=== PATIENT | female | born 1980 | race Caucasian/White ===

== ENCOUNTER 2016-12-28 17:44 | Emergency (ER) | payer SELFPAY ==
[~2016-12-28] VITALS: Ht 162.6 cm; Wt 80.0 kg
[~2016-12-28 17:44] MED LIST: ALPRAZOLAM1 MG PO; AMBIEN10 MG PO; AMBIEN5 MG PO; AMITRIPTYLIN25 MG PO; AMOXICILLIN/CL875 MG PO; AMOXICILLIN/PO500 MG PO; AMOXICILLIN500 M2 PO; AUGMENTIN875 MG PO; BACTRIM DS1 TAB PO; BENZONATATE200 MG PO; BIRTH CONTROL; BUSPAR5 MG PO; CIPROFLOXACN500 MG PO; CLARITIN10 M1 PO; CYMBALTA30 MG PO; DAYSEE1 TAB PO; DHA COMPLETE200 MG PO; DIFLUCAN150 MG PO; DOXYCYCL HYC100 MG PO; EPIPEN0.3 MG IM; FLEXERIL OR; FLEXERIL PO; FLEXERIL5 M1 PO; FLONASE NASAL50 MCG; FLUOXETINE HCL40 MG PO; GABAPENTIN400 MG PO; K-DUR/KLOR-CON10 MEQ PO; KAYEXALATE15 GM/60 M PO; LASIX 20 MG20 MG/TAB PO; LEVAQUIN750 MG PO; LOPRESSOR PO; LOPRESSOR25 M1 PO; LORTAB 1010 MG PO; LORTAB 7.5 PO; LORTAB5 PO; LUNESTA2 M1 PO; MEDDOSEPAK OR; MEDDOSEPAK PO; MELATONIN1 M1 PO; MIGRAINE OR; MIRCETTE28 DAY PO; MOTRIN800 MG PO; MUCINEX600 MG PO; NAPROSYN500 MG PO; NEORAL25 MG PO; NEURONTIN300 MG PO; NIZORAL200 MG PO; PERCOCET 5/325M1 TAB PO; PREDNISONE10 MG PO; PREDNISONE20 MG PO; PRENATA4 OR; PRENATABS OR; PRENATAL1 TAB OR; PRILOSEC40 MG PO; PROZAC40 MG PO; SEROQUEL200 MG PO; TAGAMET300 MG OR; TESSALON PER100 MG PO; TRAMADOL HCL50 MG PO; TYLENOL SEVE OR; ULTRAM50 M1 PO; VENLAFAXINE75 M1 PO; XANAX0.25 MG OR; XANAX0.25 MG PO; XANAX1 MG PO; XANAX2 MG PO; ZOFRAN ODT4 MG OR
[2016-12-28] MEDS ORDERED: MELATONIN5 M6 PO (19:29)
[2016-12-28 19:30] LABS: HEMOGLOBIN 13.2 g/dl (12.0-16.0); IMMATURE GRANULOCYTES 0.3 % (0.0-1.0); MEAN CELL VOLUME 87.1 fL CALC (80.0-100.0); MEAN CORPUSCULAR HGB 31.1 pG CALC (26.0-32.0); MEAN CORPUSCULAR HGB CONC 35.7 g/L CALC (32.0-36.0); NEUT# 3.96 thou/uL (2.00-7.15); RED BLOOD COUNT 4.25 mill/uL (4.20-5.60); RED CELL DISTRI WIDTH 12.1 % (11.5-15.5)
[2016-12-28 19:32] LABS: URINE BILIRUBIN - DIPSTICK NEGATIVE (NEGATIVE); URINE BLOOD DIPSTICK NEGATIVE (NEGATIVE); URINE CLARITY CLEAR; URINE COLOR YELLOW; URINE GLUCOSE - DIPSTICK NEGATIVE (NEGATIVE); URINE KETONE NEGATIVE (NEGATIVE); URINE LEUK ESTERASE NEGATIVE (NEGATIVE); URINE NITRITE - DIPSTICK NEGATIVE (Negative); URINE PROTEIN - DIPSTICK NEGATIVE (NEG-TRACE); URINE UROBILINOGEN - DIPSTICK 0.2 E.U./dL (0.2)
[2016-12-28 19:47] LABS: ALBUMIN 4.4 g/dL (3.2-5.0); ALKALINE PHOSPHATASE 65 u/l (38-126); AMYLASE 40 u/l (30-110); ANION GAP 13 (6-22 (CALC)); BILIRUBIN, TOTAL 0.6 mg/dL (0.0-1.4); BUN 17 mg/dL (7-17); BUN/CREATININE RATIO 17 (12-20 (CALC)); CALCIUM 9.9 mg/dL (8.4-10.2); CARBON DIOXIDE 26 mmol/l (22-30); CHLORIDE 103 mmol/l (95-108); GFR > 60 ML/MIN (>=60 (CALC)); GFR FOR AFR.AMER. > 60 ML/MIN (>=60 (CALC)); GLUCOSE 76 mg/dL (65-105); LIPASE 66 u/l (23-300); POTASSIUM 4.5 mmol/l (3.5-5.1); SGOT/AST 16 u/l (14-36); SGPT/ALT 28 u/l (9-52); SODIUM 138 mmol/l (137-146)
[2016-12-28] MEDS ORDERED: ULTRAM50 M1 PO (21:18)
[2016-12-28 21:54] VITALS: BP 137/84
== END 2016-12-28 21:58 | disposition home or self-care (01) | DRG 761 ==
LOC: ED 17:44
DX: N83.201 Unspecified ovarian cyst, right side (principal); D86.9 Sarcoidosis, unspecified; F43.10 Post-traumatic stress disorder, unspecified; F32.9 Major depressive disorder, single episode, unspecified; F41.9 Anxiety disorder, unspecified; M79.7 Fibromyalgia
CPT/HCPCS: Q9967

== ENCOUNTER 2017-03-20 18:14 | Emergency (ER) | payer MEDICAID ==
[~2017-03-20] VITALS: Ht 162.6 cm; Wt 75.0 kg
[~2017-03-20 18:14] MED LIST changes: +MELATONIN5 M6 PO
[2017-03-20 19:07] LABS: HEMATOCRIT 38.7 % (37.0-47.0); HEMOGLOBIN 13.3 g/dl (12.0-16.0); IMMATURE GRANULOCYTES 0.2 % (0.0-1.0); MEAN CORPUSCULAR HGB 30.2 pG CALC (26.0-32.0); MEAN CORPUSCULAR HGB CONC 34.4 g/L CALC (32.0-36.0); NEUT# 3.47 thou/uL (2.00-7.15); RED BLOOD COUNT 4.4 mill/uL (4.20-5.60); RED CELL DISTRI WIDTH 12.4 % (11.5-15.5)
[2017-03-20 19:20] LABS: ALBUMIN 4.6 g/dL (3.2-5.0); ALKALINE PHOSPHATASE 60 u/l (38-126); ANION GAP 17 (6-22 (CALC)); BILIRUBIN, TOTAL 0.6 mg/dL (0.0-1.4); BUN 21 mg/dL (7-17); BUN/CREATININE RATIO 25 (12-20 (CALC)); CALCIUM 9.1 mg/dL (8.4-10.2); CARBON DIOXIDE 26 mmol/l (22-30); CHLORIDE 103 mmol/l (95-108); CREATININE 0.9 mg/dL (0.5-1.0); GFR > 60 ML/MIN (>=60 (CALC)); GFR FOR AFR.AMER. > 60 ML/MIN (>=60 (CALC)); GLUCOSE 76 mg/dL (65-105); POTASSIUM 3.8 mmol/l (3.5-5.1); SGOT/AST 19 u/l (14-36); SGPT/ALT 27 u/l (9-52); SODIUM 142 mmol/l (137-146); TOTAL PROTEIN 7.4 g/dL (6.3-8.2)
[2017-03-20 19:31] LABS: MYOGLOBIN 17 ng/mL (0 - 62)
[2017-03-20 20:40] VITALS: BP 114/78
== END 2017-03-20 21:01 | disposition left against medical advice (07) | DRG 313 ==
LOC: ED 18:14
PROVIDERS: Emergency Medicine
DX: R07.9 Chest pain, unspecified (principal); Z91.19 Patient's noncompliance with other medical treatment and regimen

== ENCOUNTER 2018-02-20 08:00 | Emergency (ER) | payer OTHER ==
[~2018-02-20] VITALS: Ht 162.6 cm; Wt 75.0 kg
[2018-02-20 08:30] LABS: HEMATOCRIT 42.4 % (37.0-47.0); HEMOGLOBIN 14.8 g/dl (12.0-16.0); IMMATURE GRANULOCYTES 0.4 % (0.0-5.0); MEAN CELL VOLUME 87.8 fL CALC (80.0-100.0); MEAN CORPUSCULAR HGB 30.6 pG CALC (26.0-32.0); MEAN CORPUSCULAR HGB CONC 34.9 g/L CALC (32.0-36.0); NEUT# 2.92 thou/uL (2.00-7.15); RED BLOOD COUNT 4.83 mill/uL (4.20-5.60); RED CELL DISTRI WIDTH 12.2 % (11.5-15.5); URINE BILIRUBIN - DIPSTICK NEGATIVE (NEGATIVE); URINE BLOOD DIPSTICK NEGATIVE (NEGATIVE); URINE CLARITY CLEAR; URINE COLOR YELLOW; URINE GLUCOSE - DIPSTICK NEGATIVE (NEGATIVE); URINE KETONE NEGATIVE (NEGATIVE); URINE LEUK ESTERASE NEGATIVE (NEGATIVE); URINE NITRITE - DIPSTICK NEGATIVE (Negative); URINE PROTEIN - DIPSTICK NEGATIVE (NEG-TRACE); URINE SPECIFIC GRAVITY 1.015; URINE UROBILINOGEN - DIPSTICK 0.2 E.U./dL (0.2)
[2018-02-20 08:46] LABS: ALBUMIN 4.4 g/dL (3.2-5.0); ALKALINE PHOSPHATASE 57 u/l (38-126); ANION GAP 16 (6-22 (CALC)); BILIRUBIN, TOTAL 0.5 mg/dL (0.0-1.4); BUN 17 mg/dL (7-17); BUN/CREATININE RATIO 20 (12-20 (CALC)); CARBON DIOXIDE 27 mmol/l (22-30); CHLORIDE 103 mmol/l (95-108); CREATININE 0.9 mg/dL (0.5-1.0); GFR > 60 ML/MIN (>=60 (CALC)); GFR FOR AFR.AMER. > 60 ML/MIN (>=60 (CALC)); LIPASE 78 u/l (23-300); POTASSIUM 4.1 mmol/l (3.5-5.1); SGOT/AST 17 u/l (14-36); SGPT/ALT 25 u/l (9-52); SODIUM 142 mmol/l (137-146); TOTAL PROTEIN 7.2 g/dL (6.3-8.2)
[2018-02-20] MEDS ORDERED: ONDANSETRON4 MG PO (10:49)
[2018-02-20] MEDS ORDERED: MOTRIN400 MG PO (11:41)
[2018-02-20 11:44] VITALS: BP 149/85
== END 2018-02-20 11:54 | disposition home or self-care (01) ==
LOC: ED 08:00
PROVIDERS: Family Medicine
DX: S39.011A Strain of muscle, fascia and tendon of abdomen, initial encounter (principal); S39.012A Strain of muscle, fascia and tendon of lower back, initial encounter; X58.XXXA Exposure to other specified factors, initial encounter; N94.89 Other specified conditions associated with female genital organs and menstrual cycle

== ENCOUNTER 2018-03-28 08:42 | Emergency (ER) | payer OTHER ==
[~2018-03-28] VITALS: Ht 162.6 cm; Wt 73.0 kg
[~2018-03-28 08:42] MED LIST changes: +MOTRIN400 MG PO; +ONDANSETRON4 MG PO
[2018-03-28] MEDS ORDERED: METOPROL TAR25 MG PO (08:53)
[2018-03-28] MEDS ORDERED: TRAMADOL HCL50 MG PO (08:53)
[2018-03-28 09:40] LABS: HEMATOCRIT 38.7 % (37.0-47.0); HEMOGLOBIN 13.6 g/dl (12.0-16.0); IMMATURE GRANULOCYTES 0.3 % (0.0-5.0); MEAN CELL VOLUME 89.4 fL CALC (80.0-100.0); MEAN CORPUSCULAR HGB 31.4 pG CALC (26.0-32.0); MEAN CORPUSCULAR HGB CONC 35.1 g/L CALC (32.0-36.0); NEUT# 4.71 thou/uL (2.00-7.15); RED BLOOD COUNT 4.33 mill/uL (4.20-5.60); RED CELL DISTRI WIDTH 12.3 % (11.5-15.5)
[2018-03-28 09:41] LABS: URINE BILIRUBIN - DIPSTICK NEGATIVE (NEGATIVE); URINE BLOOD DIPSTICK NEGATIVE (NEGATIVE); URINE COLOR YELLOW; URINE GLUCOSE - DIPSTICK NEGATIVE (NEGATIVE); URINE KETONE NEGATIVE (NEGATIVE); URINE LEUK ESTERASE NEGATIVE (NEGATIVE); URINE NITRITE - DIPSTICK NEGATIVE (Negative); URINE PROTEIN - DIPSTICK NEGATIVE (NEG-TRACE); URINE SPECIFIC GRAVITY 1.025
[2018-03-28 09:43] LABS: URINE CLARITY SL CLOUDY
[2018-03-28 10:04] LABS: ANION GAP 12 (6-22 (CALC)); BUN 17 mg/dL (7-17); BUN/CREATININE RATIO 19 (12-20 (CALC)); CARBON DIOXIDE 27 mmol/l (22-30); CHLORIDE 105 mmol/l (95-108); CREATININE 0.9 mg/dL (0.5-1.0); GFR > 60 ML/MIN (>=60 (CALC)); GFR FOR AFR.AMER. > 60 ML/MIN (>=60 (CALC)); POTASSIUM 4.3 mmol/l (3.5-5.1); SODIUM 140 mmol/l (137-146)
[2018-03-28 12:06] VITALS: BP 112/73
== END 2018-03-28 12:13 | disposition home or self-care (01) ==
LOC: ED 08:42
PROVIDERS: Family Medicine
DX: S76.011A Strain of muscle, fascia and tendon of right hip, initial encounter (principal); M25.551 Pain in right hip; X58.XXXA Exposure to other specified factors, initial encounter

== ENCOUNTER 2020-01-08 10:23 | Emergency (ER) | payer MEDICAID ==
[~2020-01-08] VITALS: Ht 162.6 cm; Wt 75.0 kg
[~2020-01-08 10:23] MED LIST changes: +METOPROL TAR25 MG PO
[2020-01-08 11:28] LABS: HEMATOCRIT 39.1 % (37.0-47.0); HEMOGLOBIN 13.1 g/dl (12.0-16.0); IMMATURE GRANULOCYTES 0.6 % (0.0-5.0); MEAN CELL VOLUME 87.3 fL CALC (80.0-100.0); MEAN CORPUSCULAR HGB 29.2 pG CALC (26.0-32.0); MEAN CORPUSCULAR HGB CONC 33.5 g/dL CAL (32.0-36.0); NEUT# 3.47 thou/uL (2.00-7.15); RED BLOOD COUNT 4.48 mill/uL (4.20-5.60); RED CELL DISTRI WIDTH 12.4 % (11.5-15.5)
[2020-01-08 12:16] LABS: URINE BILIRUBIN - DIPSTICK NEGATIVE (NEGATIVE); URINE BLOOD DIPSTICK NEGATIVE (NEGATIVE); URINE COLOR YELLOW; URINE GLUCOSE - DIPSTICK NEGATIVE (NEGATIVE); URINE KETONE NEGATIVE (NEGATIVE); URINE LEUK ESTERASE NEGATIVE (NEGATIVE); URINE NITRITE - DIPSTICK NEGATIVE (Negative); URINE PROTEIN - DIPSTICK NEGATIVE (NEG-TRACE); URINE SPECIFIC GRAVITY >=1.030
[2020-01-08 12:29] LABS: ALBUMIN 4.6 g/dL (3.2-5.0); ALKALINE PHOSPHATASE 64 u/l (38-126); ANION GAP 11 (6-22 (CALC)); BILIRUBIN, TOTAL 0.7 mg/dL (0.0-1.4); BUN 20 mg/dL (7-17); BUN/CREATININE RATIO 18 (12-20 (CALC)); CARBON DIOXIDE 26 mmol/l (22-30); CHLORIDE 102 mmol/l (95-108); CREATININE 1.1 mg/dL (0.5-1.0); GFR 55 ML/MIN (>=60 (CALC)); GFR FOR AFR.AMER. > 60 ML/MIN (>=60 (CALC)); LIPASE 45 u/l (23-300); POTASSIUM 4.1 mmol/l (3.5-5.1); SGOT/AST 21 u/l (14-36); SODIUM 135 mmol/l (137-146); TOTAL PROTEIN 6.9 g/dL (6.3-8.2)
[2020-01-08] MEDS ORDERED: DOXYCYC MONO100 M2 PO (13:19)
[2020-01-08 13:22] VITALS: BP 136/85
== END 2020-01-08 13:22 | disposition home or self-care (01) ==
LOC: ED 10:23
PROVIDERS: Family Medicine
DX: R51 Headache (principal); L03.312 Cellulitis of back [any part except buttock and flank]; Z20.828 Contact with and (suspected) exposure to other viral communicable diseases

== ENCOUNTER 2020-04-22 10:41 | Emergency (ER) | payer MEDICAID ==
[~2020-04-22] VITALS: Ht 162.6 cm; Wt 65.0 kg
[~2020-04-22 10:41] MED LIST changes: +DOXYCYC MONO100 M2 PO
[2020-04-22 11:45] VITALS: BP 132/76
== END 2020-04-22 12:44 | disposition home or self-care (01) ==
LOC: ED 10:41
DX: R51.9 Headache, unspecified (principal); G43.909 Migraine, unspecified, not intractable, without status migrainosus

== ENCOUNTER 2020-06-17 15:31 | Emergency (ER) | payer MEDICAID ==
[~2020-06-17] VITALS: Ht 162.6 cm; Wt 74.0 kg
[2020-06-17] MEDS ORDERED: VENLAFAXINE37.5 M2 PO (16:04)
[2020-06-17] MEDS ORDERED: HYDROXYZ HCL50 MG PO (16:06)
[2020-06-17 16:34] LABS: HEMATOCRIT 40.2 % (37.0-47.0); HEMOGLOBIN 13.4 g/dl (12.0-16.0); IMMATURE GRANULOCYTES 0.4 % (0.0-5.0); MEAN CELL VOLUME 87.8 fL CALC (80.0-100.0); MEAN CORPUSCULAR HGB 29.3 pG CALC (26.0-32.0); MEAN CORPUSCULAR HGB CONC 33.3 g/dL CAL (32.0-36.0); NEUT# 4.37 thou/uL (2.00-7.15); RED BLOOD COUNT 4.58 mill/uL (4.20-5.60); RED CELL DISTRI WIDTH 12.2 % (11.5-15.5)
[2020-06-17 16:50] LABS: ALBUMIN 4.4 g/dL (3.2-5.0); ALKALINE PHOSPHATASE 59 u/l (38-126); ANION GAP 10 (6-22 (CALC)); BUN 25 mg/dL (7-17); BUN/CREATININE RATIO 23 (12-20 (CALC)); CARBON DIOXIDE 30 mmol/l (22-30); CHLORIDE 103 mmol/l (95-108); CREATININE 1.1 mg/dL (0.5-1.0); GFR 54 ML/MIN (>=60 (CALC)); GFR FOR AFR.AMER. > 60 ML/MIN (>=60 (CALC)); POTASSIUM 4.3 mmol/l (3.5-5.1); SGOT/AST 19 u/l (14-36); SODIUM 139 mmol/l (137-146)
[2020-06-17 16:51] LABS: BILIRUBIN, TOTAL 0.4 mg/dL (0.0-1.4)
[2020-06-17] MEDS ORDERED: AMOXICILLIN500 MG PO ×2 (17:29→17:53)
[2020-06-17 17:55] VITALS: BP 165/94
== END 2020-06-17 17:55 | disposition home or self-care (01) ==
LOC: ED 15:31
PROVIDERS: Emergency Medicine
DX: J02.9 Acute pharyngitis, unspecified (principal); Z20.828 Contact with and (suspected) exposure to other viral communicable diseases

== ENCOUNTER 2020-09-11 19:27 | Emergency (ER) | payer OTHER ==
[~2020-09-11] VITALS: Ht 162.6 cm; Wt 74.1 kg
[~2020-09-11 19:27] MED LIST changes: +AMOXICILLIN500 MG PO; +HYDROXYZ HCL50 MG PO; +VENLAFAXINE37.5 M2 PO
[2020-09-11] MEDS ORDERED: VENLAFAXINE HCL75 M1 PO (19:57)
[2020-09-11] MEDS ORDERED: PERCOCET 5/321 COMBO PO (22:11)
[2020-09-11 22:14] VITALS: BP 135/91
[2020-09-11] MEDS ORDERED: PERCOCET 5/325M1 TAB PO (22:20)
== END 2020-09-11 22:40 | disposition home or self-care (01) | DRG 914 ==
LOC: ED 19:27
DX: S89.91XA Unspecified injury of right lower leg, initial encounter (principal); W18.30XA Fall on same level, unspecified, initial encounter; Y93.41 Activity, dancing; Y92.89 Other specified places as the place of occurrence of the external cause
CPT/HCPCS: L1830

== ENCOUNTER 2021-05-26 07:08 | Observation (INO) | payer OTHER, MEDICAID ==
[2021-05-26] VITALS (8 sets, daily range): BP systolic 131–148; BP diastolic 80–92
[~2021-05-26] VITALS: Ht 162.6 cm; Wt 77.0 kg
[~2021-05-26 07:08] MED LIST changes: +PERCOCET 5/321 COMBO PO; +VENLAFAXINE HCL75 M1 PO
--- NOTE | 2021-05-26 07:10 | NUR ---
PT TO ROOM 12 W/STEADY GAIT.
--- NOTE | 2021-05-26 07:41 | NUR ---
MEDICATED WITH TORADOL 30MG IVP. ZOFRAN 4MG IVP FOR C/O 10/10 RUQ PAIN.
[2021-05-26 07:54] LABS: HEMATOCRIT 40.9 % (37.0-47.0); HEMOGLOBIN 13.7 g/dl (12.0-16.0); IMMATURE GRANULOCYTES 0.5 % (0.0-5.0); MEAN CELL VOLUME 89.9 fL CALC (80.0-100.0); MEAN CORPUSCULAR HGB 30.1 pG CALC (26.0-32.0); MEAN CORPUSCULAR HGB CONC 33.5 g/dL CAL (32.0-36.0); NEUT# 4.02 thou/uL (2.00-7.15); RED BLOOD COUNT 4.55 mill/uL (4.20-5.60); RED CELL DISTRI WIDTH 12.3 % (11.5-15.5)
--- NOTE | 2021-05-26 07:58 | NUR ---
MEDICATED WITH MORPHINE 4MG IVP FOR C/O 10 RUQ PAIN
[2021-05-26 08:21] LABS: URINE BILIRUBIN - DIPSTICK NEGATIVE (NEGATIVE); URINE BLOOD DIPSTICK NEGATIVE (NEGATIVE); URINE COLOR YELLOW; URINE GLUCOSE - DIPSTICK NEGATIVE (NEGATIVE); URINE KETONE NEGATIVE (NEGATIVE); URINE LEUK ESTERASE NEGATIVE (NEGATIVE); URINE PROTEIN - DIPSTICK NEGATIVE (NEG-TRACE); URINE UROBILINOGEN - DIPSTICK 0.2 E.U./dL (0.2)
[2021-05-26 08:22] LABS: URINE NITRITE - DIPSTICK NEGATIVE (Negative)
[2021-05-26 08:29] LABS: ALBUMIN 4.2 g/dL (3.2-5.0); ALKALINE PHOSPHATASE 69 u/l (38-126); ANION GAP 9 (6-22 (CALC)); BILIRUBIN, TOTAL 0.5 mg/dL (0.0-1.4); BUN 23 mg/dL (7-17); BUN/CREATININE RATIO 22 (12-20 (CALC)); CARBON DIOXIDE 32 mmol/l (22-30); CHLORIDE 102 mmol/l (95-108); GFR > 60 ML/MIN (>=60 (CALC)); GFR FOR AFR.AMER. > 60 ML/MIN (>=60 (CALC)); LIPASE 71 u/l (23-300); POTASSIUM 4.1 mmol/l (3.5-5.1); SGOT/AST 21 u/l (14-36); SODIUM 139 mmol/l (137-146); TOTAL PROTEIN 7.4 g/dL (6.3-8.2)
--- NOTE | 2021-05-26 08:50 | NUR ---
PT MEDICATED PER AUG FOR RUQ ABD PAIN
[2021-05-26] MEDS ORDERED: LISINOPRIL10 MG PO (09:35)
--- NOTE | 2021-05-26 09:38 | NUR ---
PT RESTING ON STRETCHER; PAIN IMPROVED; ADVISED OF WAIT TIME
--- NOTE | 2021-05-26 10:30 | NUR ---
PT RESTING ON STRETCHER; DENIES ANY NEEDS AT THIS TIME
--- NOTE | 2021-05-26 11:30 | NUR ---
RESTING ON STRETCHER WITH EYES CLOSED
--- NOTE | 2021-05-26 12:20 | NUR ---
Admission Note Report Given to: ROSALINDA FAN Transported by: X Wheelchair Stretcher Transported with: X Nurse Transporter Patent IV [id number] Bell Ringer Location: ICU X [facility]2
--- NOTE | 2021-05-26 13:26 | NUR ---
REPORT RECEIVED FROM RADHA IN ED, PT ARRIVED ON UNIT @ 1224 TRANSPORTED VIA W/C BY ED STAFF, ALERT AND ORIENTED X 4, C/O MILD ABD PAIN @ 09/01, ORIENTED TO ROOM AND CALL [facility], IVF OF 0.9 NS HUNG AND INFUSING @ 100ML/HR, EDUCATED ON INFECTION, PAIN CONTROL AND ANTI EMBOLITIC STOCKINGS. SETTLED IN BED, BECAME NAUSEATED AND STARTED DRY HEAVING, ZOFRAN GIVEN, ASSESSMENT IN PROGRESS WHEN OR STAFF ARRIVED @ 1315, RECEIVED PT AND TRANSPORTED HER OFF UNIT VIA STRETCHER TO OR. SPOUSE ACCOMPANIED PT TO THIS UNIT.
--- NOTE | 2021-05-26 18:57 | NUR ---
PT TRANSPORTED BACK TO UNIT VIA STRETCHER BY PACU STAFF @ 1752 AND TRANSFERRED TO BED, ALERT AND ORIENTED X 4, FULLY AWAKE, INCISION/PUNCTURE X 4 WELL APPROXIMATED WITH DERMABOND TO ABD. C/O MILD PAIN AND NAUSES, STARTED VOMITTING SHORTLY AFTER ARRIVAL AND ZOFRAN GIVEN. IVF INFUSING TO SITE IN LAC. O2 @ 3L VIA NC IN PLACE, REPAIR CLERK REPORTED INTUBATION WAS CHALLENGING THEREFORE MD ORDERED O2, SCD AND TEDS IN PLACE. VITAL SIGNS BEING MONITORED, CALL [facility]EDO IN REACH
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
--- NOTE | 2021-05-26 23:34 | NUR ---
PT RESTING IN BED WATCHING TV, C/O PAIN, MEDICATED PER MAR, CALL LIGHT IN REACH,CONTINUE TO MONITOR.
[2021-05-27] VITALS: BP 128/82
[2021-05-27 04:00] VITALS: BP 113/76
--- NOTE | 2021-05-27 05:07 | NUR ---
PT RETURNED TO BED FROM BSC, C/O PAIN 04/03 TO ABD. PT MEDICATED PER MAR, NO SIGNS OF DISTRESS NOTED, RESP EVEN AND UNLABORED. CALL LIGHT IN REACH,CONTINUE TO MONITOR.
--- NOTE | 2021-05-27 07:00 | NUR ---
REPORT RECEIVED FROM KALIN MONIQUE. PT RESTING SEMI-FOWLERS, VSS. DENIES PAIN AT THIS TIME CALL LIGHT WITHIN REACH. INSTRUCTED PT TO CALL FOR ASSISTANCE, VERBALIZES UNDERSTANDING.
[2021-05-27 09:02] VITALS: BP 123/84
[2021-05-27 11:21] VITALS: BP 130/82
--- NOTE | 2021-05-27 12:00 | NUR ---
PT GIVEN TORADOL FOR PAIN, PT STATES EFFECTIVENESS. MD ON FLOOR AT THIS TIME. GIVEN APPROVAL TO DISCHARGE. WILL INITIATE PAPERWORK.
[2021-05-27] MEDS ORDERED: LORTAB5 PO ×2 (12:59→13:46)
== END 2021-05-27 13:52 | disposition home or self-care (01) | DRG 419 ==
LOC: ED 07:08 → ED-I 09:00 → ED 09:22 → MS2 09:23
PROVIDERS: Family Medicine; ADMIT Surgery; ATTEND Surgery
PROC: 0FT44ZZ Resection of Gallbladder, Percutaneous Endoscopic Approach (ICD-10-PCS; principal; 2021-05-26)
DX: K81.2 Acute cholecystitis with chronic cholecystitis (principal); I10 Essential (primary) hypertension; Z90.710 Acquired absence of both cervix and uterus; Z20.822 Contact with and (suspected) exposure to COVID-19
CPT/HCPCS: G0378; J0131

== ENCOUNTER 2022-06-23 20:23 | Emergency (ER) | payer OTHER ==
[~2022-06-23] VITALS: Ht 162.6 cm; Wt 74.0 kg
[~2022-06-23 20:23] MED LIST changes: +CHOLESTYRAMINE4 G1 PO; +FLUOXETINE20 MG PO; +LISINOPRIL10 MG PO; +LOREEV XR1 MG
[2022-06-23 20:32] VITALS: BP 116/78
[2022-06-23] MEDS ORDERED: AMBIEN5 MG PO (20:41)
[2022-06-23] MEDS ORDERED: XANAX0.25 MG PO (20:42)
[2022-06-23] MEDS ORDERED: FLUOXETINE10 M2 PO (20:42)
[2022-06-23 20:45] VITALS: BP 131/85
[2022-06-23 21:00] VITALS: BP 127/78
[2022-06-23 21:03] LABS: BASO% 0.3 % (0-3); EOS% 0.8 % (0-8); HEMATOCRIT 35.6 % (37.0-47.0); HEMOGLOBIN 12.6 g/dl (12.0-16.0); IMMATURE GRANULOCYTES 0.8 % (0.0-5.0); LYMPH% 5.1 % (15-41); MEAN CELL VOLUME 89.7 fL CALC (80.0-100.0); MEAN CORPUSCULAR HGB 31.7 pG CALC (26.0-32.0); MEAN CORPUSCULAR HGB CONC 35.4 g/dL CAL (32.0-36.0); MONO% 8.6 % (2-13); NEUT# 3.15 thou/uL (2.00-7.15); NEUT% 84.4 % (42-76); RED BLOOD COUNT 3.97 mill/uL (4.20-5.60); RED CELL DISTRI WIDTH 12.2 % (11.5-15.5)
[2022-06-23 21:15] VITALS: BP 123/81
[2022-06-23] MEDS ORDERED: PAXLOVID PO (21:20)
[2022-06-23 21:33] VITALS: BP 123/81
== END 2022-06-23 21:33 | disposition home or self-care (01) ==
LOC: ED 20:23
PROVIDERS: Family Medicine
DX: U07.1 COVID-19 (principal); R09.89 Other specified symptoms and signs involving the circulatory and respiratory systems; R05.9 Cough, unspecified; R50.9 Fever, unspecified; R52 Pain, unspecified

== ENCOUNTER 2023-07-11 09:35 | Emergency (ER) | payer OTHER ==
[2023-07-11] VITALS (16 sets, daily range): BP systolic 136–159; BP diastolic 81–96
[~2023-07-11] VITALS: Ht 162.6 cm; Wt 69.0 kg
[~2023-07-11 09:35] MED LIST changes: +FLUOXETINE10 M2 PO; +PAXLOVID PO; +PYRIDIUM200 MG PO
[2023-07-11 10:11] LABS: BASO% 0.5 % (0-3); EOS% 3.2 % (0-8); HEMATOCRIT 39.3 % (37.0-47.0); HEMOGLOBIN 13.5 g/dl (12.0-16.0); IMMATURE GRANULOCYTES 0.4 % (0.0-5.0); LYMPH% 21.8 % (15-41); MEAN CELL VOLUME 90.3 fL CALC (80.0-100.0); MEAN CORPUSCULAR HGB CONC 34.4 g/dL CAL (32.0-36.0); MONO% 6.5 % (2-13); NEUT# 3.85 thou/uL (2.00-7.15); NEUT% 67.6 % (42-76); RED BLOOD COUNT 4.35 mill/uL (4.20-5.60); RED CELL DISTRI WIDTH 11.7 % (11.5-15.5)
[2023-07-11 10:42] LABS: ALBUMIN 4.2 g/dL (3.2-5.0); ALKALINE PHOSPHATASE 55 u/l (38-126); ANION GAP 11 (6-22 (CALC)); BILIRUBIN, TOTAL 0.7 mg/dL (0.02-1.3); BUN 22 mg/dL (7-17); BUN/CREATININE RATIO 22 (12-20 (CALC)); CARBON DIOXIDE 26 mmol/l (22-30); CHLORIDE 107 mmol/l (95-108); GFR FOR AFR.AMER. > 60 ML/MIN (>=60 (CALC)); GFR OTHER RACES 60 ML/MIN (>=60 (CALC)); POTASSIUM 4.3 mmol/l (3.5-5.1); SGOT/AST 23 u/l (14-36); SODIUM 139 mmol/l (137-146); TOTAL PROTEIN 6.6 g/dL (6.3-8.2)
[2023-07-11 10:53] LABS: URINE BILIRUBIN - DIPSTICK Negative (NEGATIVE); URINE BLOOD DIPSTICK Negative (NEGATIVE); URINE GLUCOSE - DIPSTICK Negative (NEGATIVE); URINE KETONE Negative (NEGATIVE); URINE LEUK ESTERASE Negative (NEGATIVE); URINE NITRITE - DIPSTICK Negative (Negative); URINE PH 5.5 (4.5-8.0); URINE PROTEIN - DIPSTICK Negative (NEG-TRACE); URINE SPECIFIC GRAVITY 1.025; URINE UROBILINOGEN - DIPSTICK 0.2 E.U./dL (0.2)
[2023-07-11 10:56] LABS: URINE COLOR Yellow
[2023-07-11 11:13] LABS: TSH, 3RD GENERATION 3.75 uIU/mL (0.47 - 4.68)
[2023-07-11] MEDS ORDERED: ZOFRAN4 MG/TAB PO (14:02)
== END 2023-07-11 14:48 | disposition home or self-care (01) ==
LOC: ED 09:35
PROVIDERS: Family Medicine
DX: R19.7 Diarrhea, unspecified (principal); R11.2 Nausea with vomiting, unspecified; R10.13 Epigastric pain; Z90.710 Acquired absence of both cervix and uterus; Z90.49 Acquired absence of other specified parts of digestive tract
CPT/HCPCS: Q9967

== ENCOUNTER 2024-01-28 12:52 | Emergency (ER) | payer OTHER ==
[~2024-01-28] VITALS: Ht 162.6 cm; Wt 70.0 kg
[~2024-01-28 12:52] MED LIST changes: +ABILIFY5 MG PO; +ZOFRAN4 MG/TAB PO
[2024-01-28 12:58] VITALS: BP 131/90
[2024-01-28 13:00] VITALS: BP 113/81
[2024-01-28] MEDS ORDERED: PAXLOVID PO (13:03)
[2024-01-28 13:08] VITALS: BP 113/81
== END 2024-01-28 13:20 | disposition home or self-care (01) ==
LOC: ED 12:52
DX: U07.1 COVID-19 (principal); R06.02 Shortness of breath; R53.83 Other fatigue